=== PATIENT | male | born 1965 | race Hispanic/Latino ===

== ENCOUNTER 2019-09-08 12:21 | Emergency (ER) | payer SELFPAY ==
[2019-09-08 12:29] VITALS: BP 125/78
--- NOTE | 2019-09-08 13:00 | XRay Report ---
CHEST 1 VIEW 09/08/2019 11:49 AM INDICATION / CLINICAL INFORMATION: PICC placement. COMPARISON: None available. FINDINGS: SUPPORT DEVICES: The tip of the left upper extremity PICC projects over the left subclavian region. HEART / MEDIASTINUM: No significant abnormality. LUNGS / PLEURA: No significant pulmonary or pleural abnormality. No pneumothorax. ADDITIONAL FINDINGS: No significant additional findings. IMPRESSION: 1. Left upper extremity PICC tip projects over the left subclavian vein region. Signer Name: Jenaro Brito MD Signed: 09/08/2019 12:56 PM Workstation Name: [id number]
--- NOTE | 2019-09-08 13:09 | Emergency Department Report ---
ED Recheck HPI - General Chief Complaint: Medical Clearance Stated Complaint: PIC LINE Time Seen by Provider: 09/08/19 12:30 Source: patient Mode of arrival: Ambulatory Limitations: No Limitations - History of Present Illness Initial Comments: Patient is a 53-year-old male who was sent to the ER from the wound clinic to have his PEG removed. He states that the PIC team could not get it to come out. Patient has been getting IV antibiotics status post amputation of toes for 6 weeks. - Related Data Allergies Allergy/AdvReac Type Severity Reaction Status Date / Time No Known Allergies Allergy Unverified 09/08/19 12:26 ED Review of Systems ROS: Stated complaint: PIC LINE Other details as noted in HPI Comment: All other systems reviewed and negative ED Past Medical Hx - Past Medical History Previous Medical History?: Yes Hx Hypertension: Yes Hx Diabetes: Yes - Surgical History Past Surgical History?: Yes Additional Surgical History: toe amputation - Family History Family history: no significant - Social History Smoking Status: Never Smoker Substance Use Type: None ED Physical Exam - General Limitations: No Limitations General appearance: alert, in no apparent distress - Head Head exam: Present: atraumatic, normocephalic - Eye Eye exam: Present: normal appearance - ENT ENT exam: Present: mucous membranes moist - Neck Neck exam: Present: normal inspection - Respiratory Respiratory exam: Present: normal lung sounds bilaterally. Absent: respiratory distress - Cardiovascular Cardiovascular Exam: Present: regular rate, normal rhythm. Absent: systolic murmur, diastolic murmur, rubs, gallop - GI/Abdominal GI/Abdominal exam: Present: soft, normal bowel sounds - Rectal Rectal exam: Present: deferred - Extremities Exam Extremities exam: Present: normal inspection - Back Exam Back exam: Present: normal inspection - Neurological Exam Neurological exam: Present: alert, oriented X3 - Psychiatric Psychiatric exam: Present: normal affect, normal mood - Skin Skin exam: Present: warm, dry, intact, normal color. Absent: rash ED Course Vital Signs 09/08/19 12:26 Temperature 98.1 F Pulse Rate 84 Respiratory 18 Rate Blood Pressure 125/78 O2 Sat by Pulse 98 Oximetry ED Recheck MDM - Core Measures Measure Exclusions: not indicated - Medical Decision Making PICC line was removed from his left arm without difficulty. Prior to removing it a chest x-ray was obtained to confirm placement. Radial ulnar pulses are intact. Rapid cap refill full range of motion of the arm. Neurovascularly intact. Tip of the PICC line was intact on removal. Site was cleaned and dressed. Patient being discharged home. He has follow-up with the wound clinic and his primary care scheduled. Vital Signs 09/08/19 12:26 Temperature 98.1 F Pulse Rate 84 Respiratory 18 Rate Blood Pressure 125/78 O2 Sat by Pulse 98 Oximetry Critical care attestation.: If time is entered above; I have spent that time in minutes in the direct care of this critically ill patient, excluding procedure time. ED Disposition Clinical Impression: PICC (peripherally inserted central catheter) removal Disposition: DC- TO HOME OR SELFCARE Is pt being admited?: No Does the pt Need Aspirin: No Condition: Stable Additional Instructions: follow up as planned Referrals: PRIMARY CARE, [Primary Care Provider] - 3-5 Days Time of Disposition: 13:20
== END 2019-09-08 13:20 | disposition home or self-care (01) ==
LOC: ED 12:21
DX: Z45.2 Encounter for adjustment and management of vascular access device (principal); I10 Essential (primary) hypertension; E11.9 Type 2 diabetes mellitus without complications; Z98.890 Other specified postprocedural states
CPT/HCPCS: 71045

== ENCOUNTER 2021-05-16 13:59 | Emergency (ER) | payer OTHER ==
--- NOTE | 2021-05-16 14:21 | Event Note ---
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 Further treatment and workup at subsequent clinical providers discretion. Patient/guardian urged not to elope from the ED as their condition may be serious if not clinically assessed and managed. Initial orders include: X-ray Labs
[2021-05-16] MEDS ORDERED: AMPICILLIN/SULBACTA 3GM/100ML 3 GM/100 ML BAG IV ONE (14:28)
--- NOTE | 2021-05-16 14:32 | Event Note ---
Date of service: 05/16/21 Face to Face: For this encounter I have reviewed the PA/[employer] documentation, treatment plan, medical decision making, and I had face to face time with this patient. Patient presented from an urgent care for possible foot and toe infection. He has had multiple digit amputations of the left foot. Over the last several days he has noticed increasing pain, swelling, and drainage from his left toe. He actually states that the redness and swelling is better than it was yesterday. [facility] did [facility]-rays and told him that he did not have osteomyelitis. They told him to come here for antibiotics despite the fact that they gave him parenteral antibiotics [facility]. Patient came here at the recommendation. On exam patient has diffuse edema and erythema involving the toe on the left foot. The other digits have been amputated. This is the second toe. There is a wound on the distal tip. No bone is palpable or visualized. There is no erythema or warmth involving the foot, ankle, or lower leg. Labs and x-rays will be repeated for an official radiologic read. Clinically I do not believe this represents osteo-. Antibiotics have been ordered.
--- NOTE | 2021-05-16 14:45 | Emergency Department Report ---
ED General Adult HPI - General Chief complaint: Extremity Injury, Lower Stated complaint: left leg swelling Time Seen by Provider: 05/16/21 14:27 Source: patient Mode of arrival: Ambulatory Limitations: No Limitations - History of Present Illness Initial comments: 55-year-old male patient with history of diabetes, CKD, and hypertension presents with possible osteomyelitis of the left foot. He reports pain and swelling of the toe for 2 weeks that has worsened over the past few days. He states he was seen in an urgent care where an x-ray was performed and was negative for osteomyelitis, however his PCP referred him to the ED for further evaluation. He denies any fever/chills/sweats. No pain at this time per patient. He is not currently taking any antibiotics. Patient has 2 prior left toe amputations - Related Data Previous Rx's Medication Instructions Recorded Last Taken Type Acetaminophen/Codeine [Tylenol 1 tab PO Q6H PRN #10 tab 05/16/21 Unknown Rx /Codeine # 3 tab] Clindamycin [Clindamycin CAP] 300 mg PO Q6H 14 Days #56 cap 05/16/21 Unknown Rx Mupirocin [Bactroban 2% OINT] 1 applic TP TID 14 Days #1 tube 05/16/21 Unknown Rx Allergies Allergy/AdvReac Type Severity Reaction Status Date / Time No Known Allergies Allergy Verified 05/16/21 14:10 ED Review of Systems ROS: Stated complaint: left leg swelling Other details as noted in HPI Constitutional: denies: chills, fever, malaise Skin: as per HPI ED Past Medical Hx - Past Medical History Hx Hypertension: Yes Hx Diabetes: Yes - Surgical History Additional Surgical History: toe amputation - Social History Smoking Status: Never Smoker Substance Use Type: None - Medications Home Medications: Home Medications Medication Instructions Recorded Confirmed Last Taken Type Acetaminophen/Codeine [Tylenol 1 tab PO Q6H PRN #10 tab 05/16/21 Unknown Rx /Codeine # 3 tab] Clindamycin [Clindamycin CAP] 300 mg PO Q6H 14 Days #56 cap 05/16/21 Unknown Rx Mupirocin [Bactroban 2% OINT] 1 applic TP TID 14 Days #1 tube 05/16/21 Unknown Rx ED Physical Exam - General Limitations: No Limitations General appearance: alert, in no apparent distress - Head Head exam: Present: atraumatic, normocephalic - Eye Eye exam: Present: normal appearance - Respiratory Respiratory exam: Present: normal lung sounds bilaterally. Absent: respiratory distress - Cardiovascular Cardiovascular Exam: Present: regular rate, normal rhythm - Extremities Exam Extremities exam: Present: other (Significant swelling of the left third toe noted with surrounding erythema and open purulent draining wound; pedal pulses palpated; there is lower leg and fluid moderate edema noted) - Neurological Exam Neurological exam: Present: alert, oriented X3 - Psychiatric Psychiatric exam: Present: normal affect, normal mood ED Course Vital Signs 05/16/21 14:09 Temperature 98.6 F Pulse Rate 82 Respiratory 16 Rate Blood Pressure 121/58 O2 Sat by Pulse 98 Oximetry ED Medical Decision Making - Lab Data Result diagrams: 05/16/21 14:20 05/16/21 14:20 Lab Results 05/16/21 05/16/21 Range/Units 14:20 14:20 WBC 11.2 H (4.5-11.0) K/mm3 RBC 4.17 (3.65-5.03) M/mm3 Hgb 10.3 L (11.8-15.2) gm/dl Hct 34.1 L (35.5-45.6) % MCV 82 L (84-94) fl MCH 25 L (28-32) pg MCHC 30 L (32-34) % RDW 15.2 (13.2-15.2) % Plt Count 327 (140-440) K/mm3 Lymph % (Auto) 9.3 L (13.4-35.0) % [place] % (Auto) 8.6 H (0.0-7.3) % Eos % (Auto) 3.9 (0.0-4.3) % Baso % (Auto) 0.4 (0.0-1.8) % Lymph # (Auto) 1.0 L (1.2-5.4) K/mm3 [place] # (Auto) 1.0 H (0.0-0.8) K/mm3 Eos # (Auto) 0.4 (0.0-0.4) K/mm3 Baso # (Auto) 0.0 (0.0-0.1) K/mm3 Seg Neutrophils % 77.8 H (40.0-70.0) % Seg Neutrophils # 8.7 H (1.8-7.7) K/mm3 Sodium 135 L (137-145) mmol/L Potassium 4.3 (3.6-5.0) mmol/L Chloride 98.7 (98-107) mmol/L Carbon Dioxide 23 (22-30) mmol/L Anion Gap 18 mmol/L BUN 42 H (9-20) mg/dL Creatinine 2.0 H (0.8-1.3) mg/dL Estimated GFR 35 ml/min BUN/Creatinine Ratio 21 % Glucose 152 H (75-100) mg/dL Calcium 8.7 (8.4-10.2) mg/dL - Radiology Data Radiology results: report reviewed LEFT FOOT 3 VIEW(S) INDICATION / CLINICAL INFORMATION: 3rd toe infection; osteomyelitis COMPARISON: 07/25/19 FINDINGS: BONES / JOINT(S): No acute fracture or subluxation. Previous 1st amputation at the level of the mid metatarsal. Interval amputation of the 2nd toe at the level of the distal metatarsal. No definite osseous destruction of the 3rd toe. 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 Interval progression of neuropathic degenerative changes at the tarsometatarsal joints. SOFT TISSUES: Marked soft tissue swelling of the 3rd toe with moderate soft tissue swelling on the dorsum of the foot. No soft tissue gas. Vascular calcifications characteristic of diabetes and/or renal failure. ADDITIONAL FINDINGS: None. IMPRESSION: 1. Soft tissue swelling of the 3rd toe without definite radiographic evidence for osteomyelitis. If this remains a clinical concern, MRI left foot without and with contrast would be recommended. - Medical Decision Making 55-year-old male patient with history of diabetes, CKD, and hypertension presents with possible osteomyelitis of the left foot. He reports pain and swelling of the toe for 2 weeks that has worsened over the past few days. He states he was seen in an urgent care where an x-ray was performed and was negative for osteomyelitis, however his PCP referred him to the ED for further evaluation. He denies any fever/chills/sweats. No pain at this time per patient. He is not currently taking any antibiotics. Patient has 2 prior left toe amputations X-rays negative for any osteomyelitis. Will treat for cellulitis with clindamycin and mupirocin and follow-up with wound care and PCP. Patient given dose of Unasyn here in ED. His vitals are normal he is well-appearing and stable for discharge home. Discussed in detail signs and symptoms that should prompt immediate return to the emergency department with patient verbalizes understanding Critical care attestation.: If time is entered above; I have spent that time in minutes in the direct care of this critically ill patient, excluding procedure time. ED Disposition Clinical Impression: Cellulitis of toe of left foot Disposition: HOME / SELF CARE / HOMELESS Is pt being admited?: No Condition: Stable Instructions: Cellulitis, Adult Prescriptions: Mupirocin [Bactroban 2% OINT] 1 applic TP TID 14 Days #1 tube Clindamycin [Clindamycin CAP] 300 mg PO Q6H 14 Days #56 cap Acetaminophen/Codeine [Tylenol /Codeine # 3 tab] 1 tab PO Q6H PRN #10 tab PRN Reason: Pain , Severe (7-10) Referrals: PRIMARY CARE,MD [Primary Care Provider] - 2-3 Days [facility]Outside] - 3-5 Days
[2021-05-16 14:53] LABS: Calcium 8.7 mg/dL (8.4-10.2)
[2021-05-16 15:07] LABS: Basophils % (Auto) 0.4 % (0.0-1.8); Eosinophils # (Auto) 0.4 K/mm3 (0.0-0.4); Eosinophils % (Auto) 3.9 % (0.0-4.3); Lymphocytes % (Auto) 9.3 % (13.4-35.0); Mean Corpuscular HGB Conc 30 % (32-34); Mean Corpuscular Volume 82 fl (84-94); Monocytes % (Auto) 8.6 % (0.0-7.3); Platelet Count 327 K/mm3 (140-440); Red Blood Count 4.17 M/mm3 (3.65-5.03); Red Cell Distribution Width 15.2 % (13.2-15.2)
[2021-05-16 15:10] LABS: Hemoglobin 10.3 gm/dl (11.8-15.2)
[2021-05-16 15:11] LABS: Hematocrit 34.1 % (35.5-45.6)
--- NOTE | 2021-05-16 15:14 | XRay Report ---
LEFT FOOT 3 VIEW(S) INDICATION / CLINICAL INFORMATION: 3rd toe infection; osteomyelitis COMPARISON: 07/25/19 FINDINGS: BONES / JOINT(S): No acute fracture or subluxation. Previous 1st amputation at the level of the mid m etatarsal. Interval amputation of the 2nd toe at the level of the distal metatarsal. No definite osse ous destruction of the 3rd toe. Interval progression of neuropathic degenerative change of the 3rd MT P joint. Interval progression of neuropathic degenerative changes at the tarsometatarsal joints. SOFT TISSUES: Marked soft tissue swelling of the 3rd toe with moderate soft tissue swelling on the do rsum of the foot. No soft tissue gas. Vascular calcifications characteristic of diabetes and/or renal failure. ADDITIONAL FINDINGS: None. IMPRESSION: 1. Soft tissue swelling of the 3rd toe without definite radiographic evidence for osteomyelitis. If t his remains a clinical concern, MRI left foot without and with contrast would be recommended. Signer Name: Huber Quiroz MD Signed: 05/16/2021 3:10 PM Workstation Name: [id number]
[2021-05-16 16:15] VITALS: BP 136/71
== END 2021-05-16 16:16 | disposition home or self-care (01) ==
LOC: ED 13:59
DX: L03.032 Cellulitis of left toe (principal); I10 Essential (primary) hypertension; E11.8 Type 2 diabetes mellitus with unspecified complications
CPT/HCPCS: 36415; 73630; 80048; 82140; 85025; 87116; 96365; 99284; J0295; 86403